=== PATIENT | male | born 2000 | race Caucasian/White ===

== ENCOUNTER 2020-08-19 00:59 | Emergency (ER) | payer SELFPAY ==
[~2020-08-19] VITALS: Ht 167.7 cm; Wt 76.3 kg
--- NOTE | 2020-08-19 02:49 | ED General ---
General Chief Complaint: Fever-Adult/Adol Stated Complaint: FEVER Nursing Triage Note: PRESENTS [facility]IA [facility] C[facility] FROM HOME WITH C/O FEVER ET SHAKINESS. REPORTS ON 08/18/20 HE WAS DX WITH STEP THROAT ET PRESCRIBED ABX. 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 STATES HE TESTED NEGATIVE FOR COVID-19 ON 08/18/20. REPORTS CONCERN D/T "HOT AND COLD FLASHES." Nursing Sepsis Screen: Possible Severe Sepsis Risk Source of Information: Patient Exam Limitations: No Limitations History of Present Illness Date Seen by Provider: Aug 19, 2020 Time Seen by Provider: 01:07 Initial Comments This 20-year-old young man presents to the emergency room via EMS with sore throat, shakiness, and lightheadedness. He was diagnosed with strep throat yesterday and started on a azithromycin. He has continued to have fever. He has taken excessive amounts of ibuprofen to try to treat this. He is febrile but vital signs are stable. He reports being Covid screen but not tested for influenza. He is alert and oriented. Allergies and Home Medications Allergies Coded Allergies: Penicillins (Verified Allergy, Intermediate, Rash, 08/19/20) Patient Home Medication List Home Medication List Reviewed: Yes Review of Systems Review of Systems Constitutional: see HPI EENTM: see HPI Respiratory: no symptoms reported Cardiovascular: see HPI Gastrointestinal: no symptoms reported Genitourinary: no symptoms reported Musculoskeletal: no symptoms reported Skin: no symptoms reported Psychiatric/Neurological: See HPI Hematologic/Lymphatic: No Symptoms Reported Immunological/Allergic: no symptoms reported Past Jpjvdil-Egxydu-Fqpxuk Hx Past Med/Social Hx: Reviewed Nursing Past Med/Soc Hx Patient Social History Alcohol Use: Rarely Uses Number of Drinks Today: 0 Smoking Status: Never a Smoker 2nd Hand Smoke Exposure: No Recent Infectious Disease Expo: No Recent Hopitalizations: No Seasonal Allergies Seasonal Allergies: No Past Medical History Surgeries: No Respiratory: No Cardiac: No Neurological: No Genitourinary: No Gastrointestinal: No Musculoskeletal: No Endocrine: No HEENT: No Cancer: No Psychosocial: No Integumentary: No Physical Exam Vital Signs Vital Signs - First Documented 08/19/20 01:00 Temp 38.1 Pulse 113 Resp 18 B/P (MAP) 136/66 (89) Pulse Ox 96 O2 Delivery Room Air Capillary Refill : Less Than 3 Seconds Height, Weight, BMI Height: '" Weight: lbs. oz. 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, 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 Skin: Normal Color, Warm/Dry Progress/Results/Core Measures Suspected Sepsis Recent Fever Within 48 Hours: Yes Infection Criteria Present: Documented Infection New/Unexplained Altered Menta: No Sepsis Screen: Possible Severe Sepsis Risk SIRS Temperature: Pulse: 113 Respiratory Rate: 18 Blood Pressure 136 /66 Mean: 89 Results/Orders Lab Results Laboratory Tests Test 08/19/20 01:15 Range/Units Coronavirus 2019 ([facility]) Negative Negative Micro Results Microbiology 08/19/20 Influenza Types A,B Antigen ([facility]) - Final, Complete My Orders Orders - MANI GRACE MD Influenza A And B Antigens (08/19/20 01:07) Covid 19 Inhouse Test (08/19/20 01:07) Ceftriaxone For Im Use (Rocephin For Im (08/19/20 03:00) Lidocaine 1% Inj 20 Ml (Xylocaine 1% Inj (08/19/20 03:00) Vital Signs/I&O 08/19/20 08/19/20 01:00 03:09 Temp 38.1 37.5 Pulse 113 96 Resp 18 18 B/P (MAP) 136/66 (89) 120/90 (89) Pulse Ox 96 98 O2 Delivery Room Air Room Air Capillary Refill : Less Than 3 Seconds Blood Pressure Mean: 89 Progress Note : Progress Note Rapid flu and Covid were negative. Patient was stable. We had a discussion about appropriate use of Tylenol and ibuprofen and the importance of not exceeding recommended doses. He was advised that it will take a period of time for the a azithromycin to take effect. He was offered an injection of Rocephin to expedite his treatment. He accepted the offer and received Rocephin. Departure Impression Primary Impression: Strep pharyngitis Additional Impression: Fever Qualified Codes: R50.9 - Fever, unspecified Disposition: 01 HOME, SELF-CARE Condition: Improved Departure-Patient Inst. Decision time for Depature: 02:46 Referrals: UNKNOWN (PCP) Primary Care Physician Patient Instructions: Fever, Adult ED, Strep Throat (DC) Add. Discharge Instructions: Drink plenty of clear liquids. For pain or fever you may take ibuprofen up to 600 mg every 6 hours as needed as well as Tylenol (acetaminophen) up to 1000 mg every 6 hours as needed. Complete your antibiotics as prescribed. Digital Photographer dispose of your toothbrush and any other oral instruments before taking the last dose of your antibiotic. This will help prevent reinfection. Call with questions or concerns. Return to the ER if you have worsening conditions. All discharge instructions reviewed with patient and/or family. Voiced under standing. MANI GRACE MD Aug 19, 2020 02:49
[2020-08-19] MEDS ORDERED: LIDOCAINE 1% INJ 20 ML 20 ML VIAL INJ ONE (03:00)
[2020-08-19] MEDS ORDERED: cefTRIAXone 1,000 MG/2.86 ml vial (IM ONLY) IM ONE (03:00)
[2020-08-19 03:09] VITALS: BP 120/90
== END 2020-08-19 03:09 | disposition home or self-care (01) ==
LOC: ER 01:01
DX: J02.0 Streptococcal pharyngitis (principal); Z88.0 Allergy status to penicillin; Z20.822 Contact with and (suspected) exposure to COVID-19
CPT/HCPCS: 87804; 99282; U0002; 87635

== ENCOUNTER 2021-01-11 00:50 | Emergency (ER) | payer SELFPAY ==
[~2021-01-11] VITALS: Ht 167 cm; Wt 76.3 kg
--- NOTE | 2021-01-11 01:30 | ED Cough/URI ---
General Chief Complaint: Cough/Cold/Flu Symptoms Stated Complaint: SORE THROAT,COUGH,RUNNY NOSE,CONGESTION, ABD PAIN Nursing Triage Note: PT PRESENTS TO THE ED C/O COUGH AND SORE THROAT WITH PAINFUL SWALLOWING THAT ONSET FIVE DAYS AGO, COWORKER RECENTLY TESTED POSITIVE FOR COVID. PT STATES THAT TONIGHT WHILE LYING IN BED HE BEGAN TO DEVELOPE MILD ABD PAIN. DENIES NVD TODAY. 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 [employer] PT LIVE-IN BOYFRIEND BEGAN HAVING NAUSEA /VOMITING/DIARRHEA YESTERDAY, HE HAS NOT BEEN TESTED HAS NOT TAKEN ANYTHING FOR SYMPTOMS HAS NOT SOUGHT CARE UNTIL TONIGHT PT HAS NOT HAD COVID-19 VACCINE 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, 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 [employer] Allergies and Home Medications Allergies Coded Allergies: Penicillins (Verified Allergy, Intermediate, Rash, 08/19/20) Home Medications Azithromycin 500 Mg Tablet, 500 MG PO DAILY Prescribed by: JOSE FLORES on 01/11/21205 Loratadine/Pseudoephedrine 1 Each Tab.er.12h, 1 EACH PO BID Prescribed by: JOSE FLORES on 01/11/21205 Prednisone 20 Mg Tab, 40 MG PO DAILY Prescribed by: JOSE FLORES on 01/11/21205 Triamcinolone Acetonide 10.8 Ml [place], 2 SPRAYS NS BID Prescribed by: JOSE FLORES on 01/11/21205 Patient Home Medication List Home Medication List Reviewed: Yes Review of Systems Review of Systems Constitutional: see HPI, malaise EENTM: see HPI, nose congestion, throat pain Respiratory: see HPI, cough; No short of breath Cardiovascular: no symptoms reported Gastrointestinal: see HPI, abdominal pain; No diarrhea, No nausea, No vomiting Genitourinary: no symptoms reported Musculoskeletal: no symptoms reported Skin: no symptoms reported Psychiatric/Neurological: No Symptoms Reported Hematologic/Lymphatic: No Symptoms Reported Immunological/Allergic: no symptoms reported Past Ftjfaim-Uyuvjd-Dqsnqh Hx Patient Social History Tobacco Use?: No Substance use?: No Alcohol Use?: No Seasonal Allergies Seasonal Allergies: No Past Medical History Surgeries: No Respiratory: No Cardiac: No Neurological: No Genitourinary: No Gastrointestinal: No Musculoskeletal: No Endocrine: No HEENT: No Cancer: No Psychosocial: No Integumentary: No Physical Exam Vital Signs - First Documented 01/11/21 01:01 Temp 37.2 Pulse 97 Resp 20 B/P (MAP) 142/87 (105) Pulse Ox 100 O2 Delivery Room Air Capillary Refill : Less Than 3 Seconds Height: '" Weight: lbs. oz. kg; 27.00 BMI Method: General Appearance: WD/WN, no apparent distress, other (DOES NOT APPEAR ILL OR TO BE IN ANY DISCOMFORT OR DISTRESS) HEENT: PERRL/EOMI, other (MILD NASAL CONGESTION; MILD PHARYNGEAL ERYTHEMA. 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, no motor/sensory deficits, alert, normal mood/affect, oriented x 3 Skin: normal color, warm/dry; No rash Progress/Results/Core Measures Suspected Sepsis SIRS Temperature: Pulse: 97 Respiratory Rate: 20 Blood Pressure 142 /87 Mean: 105 Results/Orders Lab Results Laboratory Tests Test 01/11/21 01:10 Range/Units SARS-CoV-2 RNA (RT-PCR) Not Detected Not Detecte Group A Streptococcus Screen NEGATIVE NEGATIVE My Orders Orders - JOSE FLORES DO Covid 19 Inhouse Test (01/11/21 00:55) Isolation Central Supply Req (01/11/21 00:55) Rapid Strep A Screen (01/11/21 01:02) Vital Signs/I&O 01/11/21 01/11/21 01:01 01:02 Temp 37.2 Pulse 97 Resp 20 B/P (MAP) 142/87 (105) Pulse Ox 100 O2 Delivery Room Air Room Air Capillary Refill : Less Than 3 Seconds Blood Pressure Mean: 105 Progress Note : Progress Note PLACED IN ISOLATION ROOM PPE WORN AT ALL TIMES COVID-19 TESTING PERFORMED PT ADVISED OF NEED FOR QUARANTINE UNTIL RECHECKED AND CLEARED BY HIS DR. Departure Impression Primary Impression: Person under investigation for COVID-19 Additional Impressions: Upper respiratory infection Sore throat Disposition: HOME, SELF-CARE Condition: Stable Departure-Patient Inst. Decision time for Depature: 02:00 Referrals: CELE CARBONE APRN (PCP/Family) Primary Care Physician Patient Instructions: COVID-19 Overview, Sore Throat in Adults, Upper Respiratory Infection ED, Preventing the Spread of an Infectious Disease Add. Discharge Instructions: LOTS OF CLEAR LIQUIDS--WATER, BROTH, JELLO, GATORADE TYLENOL 1 GRAM/ MOTRIN 800 MG 4 TIMES A DAY FOR PAIN OR FEVER NO WORK UNTIL YOU ARE RECHECKED AND CLEARED BY YOUR DR FOLLOW UP WITH [facility] IN 2 DAYS FOR FURTHER CARE, AND RETESTING FOR COVID-19 All discharge instructions reviewed with patient and/or family. Voiced understanding. Scripts Prednisone (Prednisone) 20 Mg Tab 40 MG PO DAILY, #6 TAB 0 Refills Prov: JOSE FLORES DO 01/11/21 Triamcinolone Acetonide (Nasacort) 10.8 Ml [place] 2 SPRAYS NS BID, #1 SPRAY Prov: JOSE FLORES DO 01/11/21 Loratadine/Pseudoephedrine (Claritin-D 12 Hour Tablet) 1 Each Tab.er.12h 1 EACH PO BID, #20 TAB Prov: JOSE FLORES DO 01/11/21 Azithromycin (Zithromax) 500 Mg Tablet 500 MG PO DAILY for 5 Days, #5 TAB Prov: JOSE FLORES DO 01/11/21 Work/School Note: Work Release Form Date Seen in the Emergency Department: Jan 11, 2021 Restrictions: Need Release from Doctor JOSE FLORES DO Jan 11, 2021 01:30
[2021-01-11] MEDS ORDERED: LORA1TAB59 PO (02:06)
[2021-01-11] MEDS ORDERED: TRIA10.8 NS (02:06)
[2021-01-11] MEDS ORDERED: PRD20T PO (02:06)
[2021-01-11] MEDS ORDERED: AZIT500T PO (02:06)
[2021-01-11] MEDS ORDERED: AZITHROMYCIN 250 MG TAB (ZITHROMAX) PO ONE (02:15)
[2021-01-11 02:17] VITALS: BP 131/72
== END 2021-01-11 02:23 | disposition home or self-care (01) ==
LOC: EDUNIT# 00:50 → ER 00:57
DX: Z20.822 Contact with and (suspected) exposure to COVID-19 (principal); J06.9 Acute upper respiratory infection, unspecified; J02.9 Acute pharyngitis, unspecified
CPT/HCPCS: 87430; 87636; 99284

== ENCOUNTER 2021-07-19 02:28 | Emergency (ER) | payer OTHER ==
[~2021-07-19] VITALS: Ht 167.7 cm; Wt 70.3 kg
[~2021-07-19 02:28] MED LIST: AZIT500T PO; LORA1TAB59 PO; PRD20T PO; TRIA10.8 NS
--- NOTE | 2021-07-19 02:55 | ED GI ---
General Chief Complaint: Abdominal/GI Problems Stated Complaint: ABD PAIN,VOMITING,WOMACK,DIZZY Source of Information: Patient History of Present Illness Date Seen by Provider: Jul 19, 2021 Time Seen by Provider: 02:44 Initial Comments PT ARRIVES VIA POV FROM HOME STATES HE ATE SOME LEFT OVER'S LAST EVENING AROUND 1730, AROUND 1900, HE BEGAN HAVING A MILD STOMACH ACHE, THEN HE FELT A LITTLE DIZZY TOOK PEPTO BISMOL AND FELT BETTER AN HOUR OR SO LATER, HE STARTED HAVING A LITTLE STOMACH ACHE AGAIN AND HE GOT A LITTLE DIZZY, THEN IT WENT AWAY THEN AN HOUR OR TWO LATER, HE STARTED HAVING MORE OF A STOMACH ACHE AND THEN HE BEGAN FEELING SICK WITH NAUSEA. HE VOMITED A LITTLE AT HOME X 1, AND THEN HE VOMITED ALOT RIGHT BEFORE HE GOT HERE AND NOW HE FEELS FINE. 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 Allergies and Home Medications Allergies Coded Allergies: Penicillins (Verified Allergy, Intermediate, Rash, 08/19/20) Patient Home Medication List Home Medication List Reviewed: Yes Azithromycin (Zithromax) 500 Mg Tablet, 500 MG PO DAILY Prescribed by: JOSE FLORES on 01/11/21205 Hyoscyamine Sulfate (Levsin-Sl) 0.125 Mg Tab.subl, 0.25 MG SL Q4H Prescribed by: JOSE FLORES on 07/19/21342 Loratadine/Pseudoephedrine (Claritin-D 12 Hour Tablet) 1 Each Tab.er.12h, 1 EACH PO BID Prescribed by: JOSE FLORES on 01/11/21205 Ondansetron (Ondansetron Odt) 4 Mg Tab.rapdis, 4 MG PO Q4H Prescribed by: JOSE FLORES on 07/19/21342 Prednisone (Prednisone) 20 Mg Tab, 40 MG PO DAILY Prescribed by: JOSE FLORES on 01/11/21205 Triamcinolone Acetonide (Nasacort) 10.8 Ml [place], 2 SPRAYS NS BID Prescribed by: JOSE FLORES on 01/11/21 0206 Review of Systems Review of Systems Constitutional: no symptoms reported EENTM: No Symptoms Reported Respiratory: No Symptoms Reported Cardiovascular: No Symptoms Reported Gastrointestinal: See HPI Genitourinary: No Symptoms Reported Musculoskeletal: no symptoms reported Skin: no symptoms reported Psychiatric/Neurological: No Symptoms Reported Endocrine: No Symptoms Reported Hematologic/Lymphatic: No Symptoms Reported Past Vylgknz-Jxvlpo-Pgpvga Hx Patient Social History Tobacco Use?: No Substance use?: No Alcohol Use?: Yes Alcohol Frequency: Couple times a week Seasonal Allergies Seasonal Allergies: No Past Medical History Surgeries: No Respiratory: No Cardiac: No Neurological: No Genitourinary: No Gastrointestinal: No Musculoskeletal: No Endocrine: No HEENT: No Cancer: No Psychosocial: No Integumentary: No Physical Exam Vital Signs Vital Signs - First Documented 07/19/21 02:40 Temp 36.7 Pulse 116 Resp 20 B/P (MAP) 128/96 (107) Pulse Ox 99 Capillary Refill : Height/Weight/BMI Height: '" Weight: lbs. oz. kg; 27.00 BMI Method: General Appearance: WD/WN, no apparent distress, other (DOES NOT APPEAR ILL OR TO BE IN ANY DISCOMFORT OR DISTRESS) HEENT: normal ENT inspection Respiratory: normal breath sounds, no respiratory distress, no accessory muscle use Cardiovascular: regular rate, rhythm, no murmur Gastrointestinal: normal bowel sounds, non tender, soft Extremities: normal inspection Neurologic/Psychiatric: no motor/sensory deficits, alert, normal mood/affect, oriented x 3 Skin: normal color, warm/dry Progress/Results/Core Measures Results/Orders Lab Results Laboratory Tests Test 07/19/21 02:46 Range/Units Influenza Type A (RT-PCR) Not Detected Not Detecte Influenza Type B (RT-PCR) Not Detected Not Detecte SARS-CoV-2 RNA (RT-PCR) Not Detected Not Detecte My Orders Orders - JOSE FLORES DO Covid 19 Inhouse Test (07/19/21 02:44) Influenza A And B By Pcr (07/19/21 02:44) Isolation Central Supply Req (07/19/21 02:44) Rx-Hyoscyamine Tab (Rx-Levsin Sl) (07/19/21 03:41) Rx-Ondansetron Po (Rx-Zofran Po) (07/19/21 03:41) Vital Signs/I&O 07/19/21 02:40 Temp 36.7 Pulse 116 Resp 20 B/P (MAP) 128/96 (107) Pulse Ox 99 Departure Impression Primary Impression: Acute gastroenteritis Disposition: 01 HOME, SELF-CARE Condition: Improved Departure-Patient Inst. Decision time for Depature: 03:40 Referrals: CELE CARBONE APRN (PCP/Family) Primary Care Physician Patient Instructions: Viral Gastroenteritis, Adult (DC) Add. Discharge Instructions: CLEAR LIQUIDS--WATER, BROTH, JELLO, GATORADE TOMORROW IF YOU ARE BETTER, ADD BRATS DIET TO CLEAR LIQUIDS--BANANAS, RICE, APPLESAUCE, TOAST, SALTINES FOLLOW UP WITH [facility] IN 1-2 DAYS IF NO BETTER All discharge instructions reviewed with patient and/or family. Voiced understanding. Scripts Ondansetron (Ondansetron Odt) 4 Mg Tab.rapdis 4 MG PO Q4H for Nausea/Vomiting, #10 TAB Prov: JOSE FLORES DO 07/19/21 Hyoscyamine Sulfate (Levsin-Sl) 0.125 Mg Tab.subl 0.25 MG SL Q4H, #10 TAB Prov: JOSE FLORES DO 07/19/21 JOSE FLORES DO Jul 19, 2021 02:55
[2021-07-19] MEDS ORDERED: RX-ONDANSETRON 4 MG ODT (ZOFRAN) PPK #4 PO STA (03:41)
[2021-07-19] MEDS ORDERED: RX-HYOSCYAMINE 0.125 MG SL (LEVSIN) PPK#6 SL STA (03:41)
[2021-07-19] MEDS ORDERED: ONDA4TAB11 PO (03:43)
[2021-07-19] MEDS ORDERED: HYOS0.1283 SL (03:43)
[2021-07-19 04:01] VITALS: BP 124/93
== END 2021-07-19 04:03 | disposition home or self-care (01) ==
LOC: EDUNIT# 02:28 → ER 02:34
DX: K52.9 Noninfective gastroenteritis and colitis, unspecified (principal); Z20.822 Contact with and (suspected) exposure to COVID-19
CPT/HCPCS: 87636; 99283